=== PATIENT | male | born 1995 | race Caucasian/White ===

== ENCOUNTER 2017-07-05 16:43 | Emergency (ER) | payer SELFPAY ==
[~2017-07-05] VITALS: Ht 157.5 cm; Wt 79.0 kg
[~2017-07-05 16:43] MED LIST: NO CURRENT MEDS
[2017-07-05 16:47] VITALS: Ht 157.5 cm; Wt 79.0 kg
== END 2017-07-05 20:20 | disposition left against medical advice (07) ==
LOC: FTE 16:43
DX: Z53.21 Procedure and treatment not carried out due to patient leaving prior to being seen by health care provider (principal)

== ENCOUNTER 2017-07-21 12:17 | Emergency (ER) | END 2017-07-21 13:06 | disposition home or self-care (01) ==